=== PATIENT | female | born 1990 | race Caucasian/White ===

== ENCOUNTER 2017-02-26 09:02 | Emergency (ER) | payer OTHER ==
[2017-02-26] MEDS ORDERED: Sodium Chloride 0.9% 1,000 ML IV STA (09:19)
--- NOTE | 2017-02-26 09:19 | ED PDOC ---
Arrival/HPI - General Chief Complaint: Medical Clearance Time Seen by Provider: 02/26/17 09:07 Historian: Patient - History of Present Illness Narrative History of Present Illness (Text): 02/26/17 09:11 26 year old female, pmh including palpitation which she is currently following with Dr. Andrade and Dr. Brooks, [facility], complaining of epigastric abdominal pain with nausea/vomiting x 2 hours. Pt. stated that she had turkey sandwich this morning around 6am, started to have epigastric pain with nausea/vomiting, had couple episodes of vomiting, was feeling dizziness after vomiting, no night sweat, no dizziness, no chest pain or shortness of breath, no palpitation now, no rash, no other medical or psychological complaints. Past Medical History - Provider Review Nursing Documentation Reviewed: Yes - Psychiatric Hx Substance Use: No Family/Social History - Physician Review Nursing Documentation Reviewed: Yes Family/Social History: Unknown Family HX Smoking Status: Never Smoked Hx Alcohol Use: No Hx Substance Use: No Allergies/Home Meds Allergies/Adverse Reactions: Allergies dillard Allergy (Verified 01/25/16 11:13) RASH pineapple Allergy (Verified 01/25/16 11:13) ITCHING Review of Systems - Review of Systems Constitutional: absent: Fatigue, Fevers Eyes: absent: Vision Changes ENT: absent: Hearing Changes Respiratory: absent: SOB, Cough Cardiovascular: absent: Chest Pain Gastrointestinal: Abdominal Pain, Nausea, Vomiting. absent: Diarrhea Skin: absent: Rash, Pruritis, Ulcer Neurological: absent: Headache, Dizziness Physical Exam Vital Signs Reviewed: Yes Vital Signs Temp Pulse Resp BP Pulse Ox 02/26/17 11:16 97 H 18 127/73 100 02/26/17 09:07 98.2 F 105 H 20 135/85 100 Temperature: Afebrile Blood Pressure: Normal Pulse: Tachycardic Respiratory Rate: Normal Appearance: Positive for: Well-Appearing, Non-Toxic Pain Distress: Moderate Mental Status: Positive for: Alert and Oriented X 3 - Systems Exam Head: Present: Atraumatic, Normocephalic Pupils: Present: PERRL Extroacular Muscles: Present: EOMI Conjunctiva: Present: Normal Mouth: Present: Moist Mucous Membranes Neck: Present: Normal Range of Motion Respiratory/Chest: Present: Clear to Auscultation, Good Air Exchange. No: Respiratory Distress, Accessory Muscle Use Cardiovascular: Present: Regular Rate and Rhythm, Normal S1, S2. No: Murmurs Abdomen: Present: Tenderness (+epigastric tenderness), Normal Bowel Sounds. No : Distention, Peritoneal Signs, Rebound, Guarding Back: Present: Normal Inspection Upper Extremity: Present: Normal Inspection. No: Cyanosis, Edema Lower Extremity: Present: Normal Inspection. No: Edema Neurological: Present: GCS=15, Speech Normal, Motor Func Grossly Intact, Gait Normal, Memory Normal Skin: Present: Warm, Dry, Normal Color. No: Rashes Psychiatric: Present: Alert, Oriented x 3, Normal Insight, Normal Concentration Medical Decision Making ED Course and Treatment: 02/26/17 09:20 -labs/ua/thyroid profil -ekg/gall bladder sono -IVF/reglan/pepcid -Observe and reassess 02/26/17 12:07 -NSR @ 94 BPM, no ST elevation or depression, no T wave inversion. -Chest x-ray: no active disease -Sonogram: Unremarkable abdominal ultrasound examination. No evidence of cholelithiasis or cholecystitis. -CT Abdomen and pelvis: lt. ovarian cyst 2.5cm -Labs show no acute findings except mild hypothyroidism (advised to follow up with the pmd Dr. Brooks) and wbc 15.5 -Urinalysis show +UTI (IV rocephine ordered). -Pt. feels completely relief and much better, labs and sonogram/ct and hypothyroidism/ovarian cyst and UTI discussed with the patient. -Discharge home with macrobid, pepcid, zofran, take tylenol for pain as needed, avoid motrin or any NSAID, follow up with your own pmd and obgyn/ spot cleaner within 2 days, return to the ER for any new or worsening signs or symptoms. - Lab Interpretations Lab Results: 02/26/17 09:30 02/26/17 09:30 Lab Results 02/26/17 10:30: Urine Color Yellow, Urine Appearance Sl cloudy, Urine pH 6.0, Ur Specific [place] >= 1.030, Urine Protein 100 H, Urine Glucose (UA) Negative, Urine Ketones Negative, Urine Blood Trace-intact H, Urine Nitrate Negative, Urine Bilirubin Negative, Urine Urobilinogen 0.2, Ur Leukocyte Esterase Small H , Urine RBC 0 - 2, Urine WBC 10 - 15, Ur Epithelial Cells 10 - 12, Urine Bacteria Many 02/26/17 09:30: Free T4 0.77 L, TSH 3rd Generation 4.7 H 02/26/17 09:30: Sodium 141, Potassium 3.9, Chloride 107, Carbon Dioxide 18 L, Anion Gap 20, BUN 15, Creatinine 0.7, Est GFR ( Amer) > 60, Est GFR (Non- Af Amer) > 60, Random Glucose 106, Calcium 10.0, Total Bilirubin 0.3, AST 43 H, ALT 30, Alkaline Phosphatase 85, Total Protein 8.8 H, Albumin 5.0 H, Globulin 3.8, Albumin/Globulin Ratio 1.3, Lipase 79 02/26/17 09:30: WBC 15.5 H D, RBC 5.01, Hgb 14.7, Hct 43.6, MCV 87.0, MCH 29.3, MCHC 33.7, RDW 12.6, Plt Count 311, MPV 10.3, Gran % 68.0, Lymph % (Auto) 24.8, [place] % (Auto) 6.9 H, Eos % (Auto) 0.2 L, Baso % (Auto) 0.1, Gran # 10.55 H, Lymph # 3.8 H, [place] # 1.1 H, Eos # 0.0, Baso # 0.02 Interpretation: Abnormal lab values (+UTI) - RAD Interpretation Radiology Orders: 02/26/17 09:19 GALL BLADDER [US] Stat 02/26/17 09:30 CHEST PORTABLE [RAD] Stat 02/26/17 09:55 ABDOMEN & PELVIS [ABD & PELVIS IV CONTRAST ONLY] [CT] Stat GALLBLADDER SONOGRAM: HISTORY: epigastric pain COMPARISON: None. TECHNIQUE: Sonographic evaluation of the right upper quadrant of the abdomen. FINDINGS: LIVER: Measures 17.6 cm in length. Normal echogenicity of the liver parenchyma. No mass. No intrahepatic bile duct dilatation. GALLBLADDER: Unremarkable. No gallstones. COMMON BILE DUCT: Measures 5 mm. No stones. No dilatation. PANCREAS: Unremarkable as visualized. No mass. No ductal dilatation. RIGHT KIDNEY: Measures 12.0 cm in length. Normal echogenicity. No calculus, mass, or hydronephrosis. AORTA: No aneurysmal dilatation. IVC: Unremarkable. OTHER FINDINGS: None . IMPRESSION: Unremarkable abdominal ultrasound examination. No evidence of cholelithiasis or cholecystitis. Chest x-ray: No active disease CT Abdomen and Pelvis: PROCEDURE: CT Abdomen and Pelvis with contrast HISTORY: upper abdominal pain/nausea/vomiting COMPARISON: None. TECHNIQUE: Contrast dose: 100 mL Omnipaque 350 Radiation dose: Total exam DLP = 890.16 mGy-cm. This CT exam was performed using one or more of the following dose reduction techniques: Automated exposure control, adjustment of the mA and/or kV according to patient size, and/or use of iterative reconstruction technique. FINDINGS: LOWER THORAX: Unremarkable. LIVER: Unremarkable. No gross lesion or ductal dilatation. GALLBLADDER AND BILE DUCTS: Unremarkable. PANCREAS: Unremarkable. No gross lesion or ductal dilatation. SPLEEN: Unremarkable. ADRENALS: Unremarkable. No mass. KIDNEYS AND URETERS: Unremarkable. No hydronephrosis. No solid mass. VASCULATURE: Unremarkable. No aortic aneurysm. BOWEL: Unremarkable. No obstruction. No gross mural thickening. APPENDIX: Normal appendix. PERITONEUM: Unremarkable. No free fluid. No free air. LYMPH NODES: Unremarkable. No enlarged lymph nodes. BLADDER: Poorly distended. Grossly normal. REPRODUCTIVE: Unremarkable uterus. Left adnexal cyst 2.1 x 2.5 cm. Nonspecific. Second left adnexal cyst, deformed with peripheral enhancement, 1.5 x 1.3 x 1.6 cm consistent with ruptured or involuting ovarian cyst/ follicle. BONES: No acute fracture. OTHER FINDINGS: None. IMPRESSION: Ruptured/involuting left ovarian cyst/ follicle. 2.5 cm left ovarian cyst. The remainder of the examination is unremarkable. Band Leader: Radiologist - EKG Interpretation EKG Interpretation (Text): 02/26/17 09:30 NSR @ 94 BPM, no ST elevation or depression, no T wave inversion. Interpreted by ED Physician: Yes Type: 12 lead EKG - Medication Orders Current Medication Orders: Discontinued Medications Famotidine (Pepcid) 20 mg IVP STAT STA Stop: 02/26/17 09:20 Last Admin: 02/26/17 09:30 Dose: 20 mg Sodium Chloride (Sodium Chloride 0.9%) 1,000 mls @ 999 mls/hr IV .Q1H1M STA Stop: 02/26/17 10:19 Last Admin: 02/26/17 09:29 Dose: 999 mls/hr Ceftriaxone Sodium (Rocephin 1 Gram Ivpb) 1 gm in 100 mls @ 200 mls/hr IVPB STAT STA PRN Reason: Protocol Stop: 02/26/17 11:55 Last Admin: 02/26/17 11:36 Dose: 200 mls/hr Iohexol (Omnipaque 350 100 Ml) Confirm Administered Dose 350 mg .ROUTE .STK-MED ONE Stop: 02/26/17 10:11 Metoclopramide HCl (Reglan) 10 mg IVP STAT STA Stop: 02/26/17 09:20 Last Admin: 02/26/17 09:30 Dose: 10 mg - PA / ENT CONSULTANT / Resident Statement MD/DO has reviewed & agrees with the documentation as recorded. Disposition/Present on Arrival - Present on Arrival Any Indicators Present on Arrival: No History of DVT/PE: No History of Uncontrolled Diabetes: No Urinary Catheter: No History of Decub. Ulcer: No History Surgical Site Infection Following: None - Disposition Have Diagnosis and Disposition been Completed?: Yes Diagnosis: Hypothyroidism, UTI (urinary tract infection), Ovarian cyst, Dyspepsia Disposition: HOME/ ROUTINE Disposition Time: 10:36 Patient Plan: Discharge Patient Problems: Current Active Problems Problem Status Onset Hypothyroidism Acute Condition: IMPROVED Additional Instructions: -Discharge home with macrobid, pepcid, zofran, take tylenol for pain as needed, avoid motrin or any NSAID, follow up with your own pmd and obgyn/ spot cleaner within 2 days, return to the ER for any new or worsening signs or symptoms. Prescriptions: Famotidine [Pepcid] 20 mg PO BID #14 tab Nitrofurantoin Macrocrystals [Macrobid] 100 mg PO BID #14 cap Ondansetron [Zofran] 4 mg PO Q8H PRN #10 tab PRN Reason: Nausea/Vomiting Referrals: PCP,NO [Primary Care Provider] - Follow up with primary Rayo Michelle MD [Staff Provider] - Follow up with primary Dewayne Felder MD [Staff Provider] - Follow up with primary Marianela Brooks MD [Staff Provider] - Follow up with primary Forms: [facility] ([place]), WORK NOTE
[2017-02-26 09:24] VITALS: TEMP 98.2; O2SAT 100; BMI 29.9
[2017-02-26 09:35] LABS: BASO # 0.02 K/mm3 (0.0-2.0); BASO % 0.1 % (0.0-3.0); EOS % 0.2 % (1.5-5.0); GRAN # 10.55 (1.4-6.5); HEMOGLOBIN 14.7 g/dL (12.0-16.0); LYMPH # 3.8 (1.2-3.4); LYMPH % 24.8 % (22.0-35.0); MEAN CORPUSCULAR HEMOGLOBIN 29.3 pg (25.0-35.0); MEAN CORPUSCULAR HGB CONC 33.7 g/dl (31.0-37.0); MEAN PLATELET VOLUME 10.3 fl (7.0-11.0); MONO # 1.1 (0.1-0.6); MONO % 6.9 % (1.0-6.0); PLATELET COUNT 311 10^3/uL (120.0-450.0); RBC 5.01 10^6/uL (3.5-6.1); RED CELL DISTRIBUTION WIDTH 12.6 % (11.5-14.5); WHITE BLOOD COUNT 15.5 10^3/ul (4.5-11.0)
[2017-02-26 09:47] LABS: ALB/GLOB RATIO 1.3 (1.1-1.8); ALT/SGPT 30 U/L (7-56); AST/SGOT 43 U/L (15-39); BLOOD UREA NITROGEN 15 mg/dL (7-21); GFR AFRICAN-AMERICAN > 60; GFR NON-AFRICAN AMERICAN > 60; LIPASE 79 U/L (23-300)
[2017-02-26] MEDS ORDERED: Iohexol 350 MG/100 ML VIAL ONE (10:10)
[2017-02-26 10:18] LABS: FREE T4 0.77 ng/dL (0.78-2.19)
--- NOTE | 2017-02-26 10:24 | US ---
HISTORY: epigastric pain COMPARISON: None. TECHNIQUE: Sonographic evaluation of the right upper quadrant of the abdomen. FINDINGS: LIVER: Measures 17.6 cm in length. Normal echogenicity of the liver parenchyma. No mass. No intrahepatic bile duct dilatation. GALLBLADDER: Unremarkable. No gallstones. COMMON BILE DUCT: Measures 5 mm. No stones. No dilatation. PANCREAS: Unremarkable as visualized. No mass. No ductal dilatation. RIGHT KIDNEY: Measures 12.0 cm in length. Normal echogenicity. No calculus, mass, or hydronephrosis. AORTA: No aneurysmal dilatation. IVC: Unremarkable. OTHER FINDINGS: None . IMPRESSION: Unremarkable abdominal ultrasound examination. No evidence of cholelithiasis or cholecystitis.
[2017-02-26 10:50] LABS: URINE BILIRUBIN NEGATIVE (NEGATIVE); URINE BLOOD TRACE-INTACT (NEGATIVE); URINE GLUCOSE (UA) NEGATIVE (NEGATIVE); URINE LEUKOCYTE ESTERASE SMALL Leu/uL (NEGATIVE); URINE NITRATE NEGATIVE (NEGATIVE); URINE PROTEIN 100 mg/dL (<30 mg/dL); URINE UROBILINOGEN 0.2 E.U./dL (<1 E.U./dL)
[2017-02-26 10:51] LABS: URINE APPEARANCE SL CLOUDY (CLEAR); URINE COLOR YELLOW (YELLOW)
--- NOTE | 2017-02-26 10:55 | RAD ---
HISTORY: medical clearance COMPARISON: No prior. FINDINGS: LUNGS: No active pulmonary disease. PLEURA: No significant pleural effusion identified, no pneumothorax apparent. CARDIOVASCULAR: Normal. OSSEOUS STRUCTURES: No significant abnormalities. VISUALIZED UPPER ABDOMEN: Normal. OTHER FINDINGS: None. IMPRESSION: No active disease.
[2017-02-26 10:56] LABS: URINE BACTERIA MANY (NEG); URINE RBC 0 - 2 /hpf (0-2)
[2017-02-26 11:17] VITALS: RESP 18
[2017-02-26] MEDS ORDERED: cefTRIAXone 1 gm 1 GM/100 ML BAG IVPB STA (11:26)
--- NOTE | 2017-02-26 11:39 | CARD ---
APPROVED REPORT EKG Measurement Heart [id number] VT [id number] [id number] <Conclusion> Normal sinus rhythm Normal ECG
--- NOTE | 2017-02-26 11:50 | CT ---
PROCEDURE: CT Abdomen and Pelvis with contrast HISTORY: upper abdominal pain/nausea/vomiting COMPARISON: None. TECHNIQUE: Contrast dose: 100 mL Omnipaque 350 Radiation dose: Total exam DLP = 890.16 mGy-cm. This CT exam was performed using one or more of the following dose reduction techniques: Automated exposure control, adjustment of the mA and/or kV according to patient size, and/or use of iterative reconstruction technique. FINDINGS: LOWER THORAX: Unremarkable. LIVER: Unremarkable. No gross lesion or ductal dilatation. GALLBLADDER AND BILE DUCTS: Unremarkable. PANCREAS: Unremarkable. No gross lesion or ductal dilatation. SPLEEN: Unremarkable. ADRENALS: Unremarkable. No mass. KIDNEYS AND URETERS: Unremarkable. No hydronephrosis. No solid mass. VASCULATURE: Unremarkable. No aortic aneurysm. BOWEL: Unremarkable. No obstruction. No gross mural thickening. APPENDIX: Normal appendix. PERITONEUM: Unremarkable. No free fluid. No free air. LYMPH NODES: Unremarkable. No enlarged lymph nodes. BLADDER: Poorly distended. Grossly normal. REPRODUCTIVE: Unremarkable uterus. Left adnexal cyst 2.1 x 2.5 cm. Nonspecific. Second left adnexal cyst, deformed with peripheral enhancement, 1.5 x 1.3 x 1.6 cm consistent with ruptured or involuting ovarian cyst/ follicle. BONES: No acute fracture. OTHER FINDINGS: None. IMPRESSION: Ruptured/involuting left ovarian cyst/ follicle. 2.5 cm left ovarian cyst. The remainder of the examination is unremarkable.
[2017-02-26 13:05] VITALS: BP 120/73; PULSE 98
== END 2017-02-26 12:25 | disposition home or self-care (01) ==
LOC: ED 09:02
DX: N39.0 Urinary tract infection, site not specified (principal); E03.9 Hypothyroidism, unspecified; R10.13 Epigastric pain; N83.202 Unspecified ovarian cyst, left side
CPT/HCPCS: 71010; 74177; 76705; 80053; 81001; 83690; 84439; 84443; 85025; 87086; 93005; 96365; 96375; 99283; J0696; J2405; J2765; J7040; Q9967

== ENCOUNTER 2017-04-23 10:26 | Day surgery (SDC) | payer OTHER ==
[2017-04-17 09:00] VITALS: BMI 32.2
[2017-04-23] MEDS ORDERED: Sodium Chloride 0.9% 1,000 ML IV SCH (12:15)
[2017-04-23] MEDS ORDERED: Propofol 10 mg/ml Inj (20 ML) ONE (12:18)
[2017-04-23 12:51] VITALS: TEMP 98.2
[2017-04-23 13:27] VITALS: BP 109/61; PULSE 74; RESP 19; O2SAT 100
== END 2017-04-23 13:45 | disposition home or self-care (01) ==
LOC: ENDO 10:26
PROVIDERS: ATTEND Internal Medicine
DX: K29.70 Gastritis, unspecified, without bleeding (principal); K31.9 Disease of stomach and duodenum, unspecified
CPT/HCPCS: 43239; 84703; 88305; 88342; J2001; J2704; J3010; J7040 ×2

== ENCOUNTER 2017-12-24 08:43 | Emergency (ER) | payer OTHER ==
[2017-12-24 09:37] VITALS: BMI 34.7
--- NOTE | 2017-12-24 09:37 | ED PDOC ---
Arrival/HPI - General Chief Complaint: Abdominal Pain Time Seen by Provider: 12/24/17 09:21 Historian: Patient - History of Present Illness Narrative History of Present Illness (Text): 12/24/17 09:31 27 year old female, 37 weeks () and is scheduled to deliver on January 12 at [facility], presents to the Emergency department complaining of left upper quadrant abdominal discomfort described as intermitted cramping sensation associated with dizziness today. Patient states she was at work today when her blood pressure dropped to 96/60 mmHg. Patient states she was seen by her mental health associate Dr. Joaquim Colvin yesterday and was advised to continue to followup due to 1 cm dilation. Patient states lower abdominal pain pain has been ongoing for 2 weeks but currently this pain is intermittent and located in the left upper abdomen. pt denies chest pain or shortness of breath. pt denies any contraction, vaginal leakage, vaginal bleeding, fever, chills, nausea, vomiting, chest pain, shortness of breath or any other complaints. Patient presents to the Emergency department for medical evaluation. Time/Duration: Prior to Arrival Symptom Onset: Gradual Symptom Course: Intermittent Quality: Aching Activities at Onset: Light Context: Work Past Medical History - Provider Review Nursing Documentation Reviewed: Yes - Travel History Have you recently traveled outside [place] w/in the past 3 mons?: No - Tetanus Immunization Tetanus Immunization: Unknown - Cardiac Hx Cardiac Arrhythmia: Yes Hx Pacemaker: No - Pulmonary Hx Respiratory Disorders: No - Neurological Hx Neurological Disorder: No - HEENT Hx HEENT Disorder: No - Renal Hx Renal Disorder: No - Endocrine/Metabolic Hx Endocrine Disorders: No - Hematological/Oncological Hx Blood Disorders: No - Integumentary Hx Dermatological Disorder: No - Musculoskeletal/Rheumatological Hx Musculoskeletal Disorders: No - Gastrointestinal Hx Gastroesophageal Reflux: Yes - Genitourinary/Gynecological Hx Genitourinary Disorders: No - Psychiatric Hx Psychophysiologic Disorder: No Hx Emotional Abuse: No Hx Physical Abuse: No Hx Substance Use: No - Anesthesia Hx Anesthesia Reactions: No (EPIDURAL) Hx Malignant Hyperthermia: No - Suicidal Assessment Feels Threatened In Home Enviroment: No Family/Social History - Physician Review Nursing Documentation Reviewed: Yes Family/Social History: No Known Family HX Smoking Status: Never Smoked Hx Alcohol Use: No Hx Substance Use: No Allergies/Home Meds Allergies/Adverse Reactions: Allergies dillard Allergy (Verified 05/18/17 10:20) RASH pineapple Allergy (Verified 05/18/17 10:20) ITCHING SEASONAL Allergy (Uncoded 05/18/17 10:20) CONGESTION Home Medications: Home Meds Medication Instructions Recorded Confirmed Pantoprazole Sodium [Protonix] 40 mg PO DAILY 04/23/17 05/18/17 Review of Systems - Physician Review All systems were reviewed & negative as marked: Yes - Review of Systems Constitutional: Normal. absent: Fevers Respiratory: Normal. absent: SOB Cardiovascular: Other (Low blood pressure). absent: Chest Pain Gastrointestinal: Abdominal Pain (left upper quadrant abdominal discomfort). absent: Nausea, Vomiting Genitourinary Female: Normal. absent: Vaginal Bleeding, Vaginal Discharge Musculoskeletal: absent: Arthralgias, Neck Pain Skin: absent: Rash, Pruritis Neurological: Dizziness Psychiatric: absent: Anxiety, Depression Physical Exam Vital Signs Reviewed: Yes Vital Signs Pulse Resp BP Pulse Ox 12/24/17 09:05 102 H 18 136/86 100 Temperature: Afebrile Blood Pressure: Normal Pulse: Tachycardic Respiratory Rate: Normal Appearance: Positive for: Well-Appearing, Non-Toxic, Comfortable Pain Distress: None Mental Status: Positive for: Alert and Oriented X 3 - Systems Exam Head: Present: Atraumatic, Normocephalic Conjunctiva: Present: Normal Mouth: Present: Moist Mucous Membranes Neck: Present: Normal Range of Motion Respiratory/Chest: Present: Clear to Auscultation, Good Air Exchange. No: Respiratory Distress, Accessory Muscle Use Cardiovascular: Present: Regular Rate and Rhythm, Normal S1, S2. No: Murmurs Abdomen: No: Tenderness, Peritoneal Signs Back: No: CVA Tenderness, Midline Tenderness Upper Extremity: Present: Normal Inspection. No: Cyanosis, Edema Lower Extremity: Present: Normal Inspection. No: Edema Neurological: Present: GCS=15, Speech Normal Skin: Present: Warm, Dry, Normal Color. No: Rashes Psychiatric: Present: Alert, Oriented x 3 Medical Decision Making ED Course and Treatment: 12/24/17 09:38 27 year old female presents to the Emergency department for left upper quadrant discomfort pt vitals are stable; pt is not hypotensive. c/o LUQ abd pain. no vomiting. no contractions, no Leakage of fluids, no bleeding. Heart via doppler; approx 140bpm Plan: -- Transfer -- Reassess and disposition Prior Visits: Notes and results from previous visits were reviewed. Progress Notes: 12/24/17 09:[address] Michelle traffic assistant website optimization strategist; accepts transfer to [place]; advised to contact dr. colvin as patient is private patient of dr. colvin Discussed case with Dr. Colvin, who is aware and agrees with Emergency department management plan to transfer patient to [facility] ER for further management. impression; abdominal pain in transfer to [facility]. 12/24/17 09:53 consent for transfer obtained. - Scribe Statement The provider has reviewed the documentation as recorded by the Scribe Debo Thomas. All medical record entries made by the Scribe were at my direction and personally dictated by me. I have reviewed the chart and agree that the record accurately reflects my personal performance of the history, physical exam, medical decision making, and the department course for this patient. I have also personally directed, reviewed, and agree with the discharge instructions and disposition. Disposition/Present on Arrival - Present on Arrival Any Indicators Present on Arrival: No History of DVT/PE: No History of Uncontrolled Diabetes: No Urinary Catheter: No History Surgical Site Infection Following: None - Disposition Have Diagnosis and Disposition been Completed?: Yes Diagnosis: Abdominal pain affecting Disposition: Transfer [facility]U Disposition Time: 09:53 Patient Plan: Transfer To ([facility] ER; dr. Michelle) Condition: FAIR Referrals: Marianela Brooks MD [Primary Care Provider] - Follow up with primary Kika Colvin MD [Medical Doctor] - Follow up with primary Forms: [facility] ([place])
[2017-12-24 09:44] VITALS: RESP 18
[2017-12-24] MEDS ORDERED: Sodium Chloride 0.9% 500 ML IV STA (10:40)
[2017-12-24 11:38] VITALS: BP 121/78; PULSE 93; TEMP 98.8; O2SAT 99
== END 2017-12-24 11:50 | disposition short-term general hospital (02) ==
LOC: ED 08:43
DX: O26.93 Pregnancy related conditions, unspecified, third trimester (principal); R10.9 Unspecified abdominal pain; Z3A.37 37 weeks gestation of pregnancy
CPT/HCPCS: 82948; 96360; 99285; J7040

== ENCOUNTER 2018-07-03 18:18 | Emergency (ER) | payer BC, OTHER ==
[2018-07-03 18:18] VITALS: BMI 34.3
[2018-07-03 18:38] VITALS: TEMP 102.2; O2SAT 100
--- NOTE | 2018-07-03 18:56 | ED PDOC ---
Arrival/HPI - General Chief Complaint: Flu-like Symptoms Time Seen by Provider: 07/03/18 18:38 Historian: Patient - History of Present Illness Narrative History of Present Illness (Text): 07/03/18 18:56 28 yo F w/ no significant PMH, reports onset of fever with feeling fatigue and bodyaches. Otherwise: (-) cough, (-) sore throat, (-) URI symptoms, (-) SOB, (-) chest pain, (-) N/V/D, (-) abdominal pain, (-) flank pain, (-) urinary symptoms, (-) recent travel, (-) sick contacts. PMD [place] Past Medical History - Infectious Disease Hx of Infectious Diseases: None - Tetanus Immunization Tetanus Immunization: Unknown - Reproductive Menopause: No - Cardiac Hx Cardiac Disorders: No Hx Hypertension: No - Pulmonary Hx Respiratory Disorders: No - Neurological Hx Neurological Disorder: No - HEENT Hx HEENT Disorder: No - Renal Hx Renal Disorder: No - Endocrine/Metabolic Hx Endocrine Disorders: No - Hematological/Oncological Hx Blood Disorders: No - Integumentary Hx Dermatological Disorder: No - Musculoskeletal/Rheumatological Hx Musculoskeletal Disorders: No - Gastrointestinal Hx Gastroesophageal Reflux: Yes - Genitourinary/Gynecological Hx Genitourinary Disorders: No - Psychiatric Hx Depression: No Hx Substance Use: No - Anesthesia Hx Anesthesia Reactions: No (EPIDURAL) Hx Malignant Hyperthermia: No - Suicidal Assessment Feels Threatened In Home Enviroment: No Family/Social History Family/Social History: No Known Family HX Smoking Status: Never Smoked Hx Alcohol Use: No Hx Substance Use: No Allergies/Home Meds Allergies/Adverse Reactions: Allergies dillard Allergy (Verified 07/03/18 18:38) RASH pineapple Allergy (Verified 07/03/18 18:38) ITCHING SEASONAL Allergy (Uncoded 05/18/17 10:20) CONGESTION Review of Systems - Review of Systems Constitutional: Fatigue, Fevers ENT: absent: Sore Throat, Rhinorrhea, Sinus Congestion Respiratory: absent: SOB, Cough Cardiovascular: absent: Chest Pain, Palpitations Gastrointestinal: absent: Abdominal Pain, Diarrhea, Nausea, Vomiting Genitourinary Female: absent: Dysuria, Frequency, Hematuria Musculoskeletal: Arthralgias, Myalgias. absent: Back Pain, Neck Pain Skin: absent: Rash, Pruritis, Skin Lesions Neurological: absent: Headache, Dizziness Physical Exam Vital Signs Temp Pulse Resp BP Pulse Ox 07/03/18 18:33 102.2 F H 124 H 18 141/97 H 100 Temperature: Febrile Blood Pressure: Normal Pulse: Tachycardic Respiratory Rate: Normal Appearance: Positive for: Well-Appearing, Non-Toxic, Comfortable Pain Distress: None Mental Status: Positive for: Alert and Oriented X 3 - Systems Exam Head: Present: Atraumatic, Normocephalic Pupils: Present: PERRL Extroacular Muscles: Present: EOMI Conjunctiva: Present: Normal Ears: Present: Normal, NORMAL TM, Normal Canal. No: Erythema Mouth: Present: Moist Mucous Membranes Pharnyx: Present: Normal. No: ERYTHEMA, EXUDATE Neck: Present: Normal Range of Motion. No: Meningeal Signs, Lymphadenopathy Respiratory/Chest: Present: Clear to Auscultation, Good Air Exchange. No: Respiratory Distress, Accessory Muscle Use Cardiovascular: Present: Regular Rate and Rhythm, Normal S1, S2. No: Murmurs Abdomen: No: Tenderness, Distention, Peritoneal Signs Back: Present: Normal Inspection Upper Extremity: Present: Normal Inspection. No: Cyanosis, Edema Lower Extremity: Present: Normal Inspection. No: Edema Neurological: Present: GCS=15, CN II-XII Intact, Speech Normal, Motor Func Grossly Intact, Normal Sensory Function Skin: Present: Warm, Dry, Normal Color. No: Rashes Psychiatric: Present: Alert, Oriented x 3, Normal Insight, Normal Concentration Medical Decision Making ED Course and Treatment: 07/03/18 18:55 Patient medicated with tylenol po and tamiflu po. Diagnosis of flu d/w the patient, advised bedrest, plenty of fluids, motrin/tylenol for fever and pain. Advised to follow up with primary care physician in 1-2 days without fail. Advised to take medication as prescribed. Return to the emergency room at any time for any new or worsening symptoms. Patient states she fully agrees with and understands discharge instructions. States that she agrees with the plan and disposition. Verbalized and repeated discharge instructions and plan. I have given the patient opportunity to ask any additional questions. - Medication Orders Current Medication Orders: Oseltamivir Phosphate (Tamiflu Cap) 75 mg PO ONCE ONE; Protocol Stop: 07/03/18 18:53 Discontinued Medications Acetaminophen (Tylenol 325mg Tab) 975 mg PO STAT STA Stop: 07/03/18 18:46 - PA / [employer]OM[employer] MECH[employer]IC / Resident Statement MD/DO has reviewed & agrees with the documentation as recorded. Disposition/Present on Arrival - Present on Arrival Any Indicators Present on Arrival: No History of DVT/PE: No History of Uncontrolled Diabetes: No Urinary Catheter: No History of Decub. Ulcer: No History Surgical Site Infection Following: None - Disposition Have Diagnosis and Disposition been Completed?: Yes Diagnosis: Fever, Flu Disposition: HOME/ ROUTINE Disposition Time: 18:50 Patient Plan: Discharge Condition: STABLE Discharge Instructions (ExitCare): Fever, Adult (DC), Flu, Adult (DC) Additional Instructions: Thank you for letting us take care of you today. You were treated for fever, flu. The emergency medical care you received today was directed at your acute symptoms. If you were prescribed any medication, please fill it and take as directed. It may take several days for your symptoms to resolve. Return to the Emergency Department if your symptoms worsen, do not improve, or if you have any other problems. Please contact your doctor in 2 days for re-evaluation and follow up. Bring any paperwork you were given at discharge with you along with any medications you are taking to your follow up visit. Our treatment cannot replace ongoing medical care by a primary care provider (PCP) outside of the emergency department. Thank you for allowing the [facility] team to be part of your care today. Prescriptions: Oseltamivir Phosphate [Tamiflu] 75 mg PO BID #10 capsule Forms: [employer] (Malagasy), WORK NOTE
[2018-07-03 19:16] VITALS: BP 138/91; PULSE 113; RESP 20
== END 2018-07-03 19:19 | disposition home or self-care (01) ==
LOC: ED 18:18
DX: J11.1 Influenza due to unidentified influenza virus with other respiratory manifestations (principal)

== ENCOUNTER 2018-11-04 11:56 | Outpatient (CLI) | payer OTHER | END 2018-11-04 11:57 | disposition home or self-care (01) | LOC: LAB 11:56 | DX: N39.9 Disorder of urinary system, unspecified (principal) ==